=== PATIENT | female | born 1990 | race Hispanic/Latino ===

== ENCOUNTER 2020-01-07 13:15 | Emergency (ER) | payer MEDICAID, OTHER ==
[2020-01-07 15:12] LABS: APPEARANCE,URINE Clear (CLEAR); BILIRUBIN,URINE Negative (NEGATIVE); COLOR,URINE Yellow (YELLOW); GLUCOSE, URINE (UA) Negative (NEGATIVE); KETONES,URINE 40 mg/dL (NEGATIVE); LEUKOCYTE ESTERASE ,URINE Trace (NEGATIVE); NITRATE,URINE Negative (NEGATIVE); OCCULT BLOOD,URINE Negative (NEGATIVE); PROTEIN,URINE Negative (NEGATIVE); UROBILINOGEN,URINE 0.2 mg/dL (0.2-1.0)
[2020-01-07 15:26] LABS: BACTERIA,URINE Few /HPF (None Seen); RBC,URINE None Seen /HPF (0-1)
[2020-01-07] MEDS ORDERED: SODIUM CHLORIDE 0.9% 1000ML 1,000 ML IV ONE (15:49)
[2020-01-07] MEDS ORDERED: CEFTRIAXONE SODIUM 1 GM ONE (15:51)
[2020-01-07] MEDS ORDERED: ONDANSETRON HCL 4 MG/2 ML VIAL ONE (15:51)
[2020-01-07] MEDS ORDERED: ACETAMINOPHEN 325 MG TAB ONE (15:51)
== END 2020-01-07 17:05 | disposition home or self-care (01) ==
LOC: EDH 13:15
DX: O23.41 Unspecified infection of urinary tract in pregnancy, first trimester (principal); O99.611 Diseases of the digestive system complicating pregnancy, first trimester; K29.00 Acute gastritis without bleeding; O26.891 Other specified pregnancy related conditions, first trimester; E86.0 Dehydration; Z87.891 Personal history of nicotine dependence; Z3A.08 8 weeks gestation of pregnancy
CPT/HCPCS: 36415; 81001; 81025; 84702; 96361; 96374; 96375; 99284; J0696; J2405; J7030

== ENCOUNTER 2020-07-22 07:36 | Inpatient (IN) | payer MEDICAID ==
[~2020-07-22] VITALS: Ht 157.5 cm; Wt 100.2 kg
[2020-07-22] MEDS ORDERED: LACTATED RINGERS 1000ML 1,000 ML IV PRN (08:17)
[2020-07-22] MEDS ORDERED: TERBUTALINE SULFATE VIAL 1MG/ML SQ PRN (08:30)
[2020-07-22 08:53] LABS: MEAN CORPUSCULAR HEMOGLOBIN 29.7 pg (27.0-33.0); MEAN CORPUSCULAR HGB CONC 33.6 g/dL (32.0-36.0); MEAN CORPUSCULAR VOLUME 88.2 fL (79-99); RED BLOOD CELL COUNT(AUTO) 3.74 MIL/uL (4.00-5.50); RED CELL DISTRIBUTION WIDTH 13.7 % (11.0-15.5); WHITE BLOOD COUNT (AUTO) 10.8 K/uL (4.8-10.8)
[2020-07-22] MEDS ORDERED: CEFAZOLIN SODIUM 1 GM VIAL IVP PRN (11:15)
[2020-07-22] MEDS ORDERED: OXYTOCIN-LR 20 UNITS/1000 ML 1,000 ML IV SCH (11:15)
[2020-07-22] MEDS ORDERED: LACTATED RINGERS 1000ML 1,000 ML IV SCH (11:15)
[2020-07-22] MEDS ORDERED: OXYTOCIN 10 UNIT/1ML 10ML VIAL ONE (12:04)
[2020-07-22] MEDS ORDERED: FENTANYL CITRATE PF 50 MCG/1 ML 2ML VIAL ONE (12:05)
[2020-07-22] MEDS ORDERED: DURAMORPH PF1 MG/ML 10ML AMP IV ONE (12:05)
[2020-07-22] MEDS ORDERED: ONDANSETRON HCL 4 MG/2 ML VIAL ONE ×2 (12:05→16:16)
[2020-07-22] MEDS ORDERED: PROPOFOL 10 MG/ML 20ML VIAL IV ONE (12:28)
[2020-07-22] MEDS ORDERED: EPHEDRINE SULFATE 50 MG/ML AMPULE ONE (12:47)
[2020-07-22] MEDS ORDERED: MEPERIDINE-PF 75 MG/ML SYG IM PRN (13:30)
[2020-07-22] MEDS ORDERED: SODIUM CHLORIDE 0.9% 10 ML VIAL IVP PRN (13:30)
[2020-07-22] MEDS ORDERED: PROMETHAZINE HCL 25 MG/ML 1ML AMPULE IM PRN (13:30)
[2020-07-22] MEDS ORDERED: OXYTOCIN-LR 20 UNITS/1000 ML 1,000 ML IV PRN (13:30)
[2020-07-22] MEDS ORDERED: KETAMINE 50MG/ML SYRINGE 50 MG/ML DISP.SYRIN IV ONE (13:41)
[2020-07-22 15:00] VITALS: BP 120/63
[2020-07-22] MEDS ORDERED: ONDANSETRON HCL 4 MG/2 ML VIAL IVP PRN (16:30)
[2020-07-22] MEDS ORDERED: DiphenhydrAMINE HCL 50 MG/ML VIAL IVP PRN (16:30)
[2020-07-22] MEDS ORDERED: EPHEDRINE SULFATE 50 MG/ML AMPULE IVP PRN (16:30)
[2020-07-22] MEDS ORDERED: NALOXONE HCL 0.4 MG/1 ML ML IVP PRN ×3 (16:30)
[2020-07-22 19:24] VITALS: BP 113/62
[2020-07-22] MEDS: LACTATED RINGERS 1000ML 1,000 ML IV SCH (20:02)
[2020-07-22 23:23] VITALS: BP 102/51
[2020-07-23 03:24] VITALS: BP 90/58
[2020-07-23] MEDS: LACTATED RINGERS 1000ML 1,000 ML IV SCH (06:07)
--- NOTE | 2020-07-23 06:15 | NUR ---
SAURABH LEON, HELEN CARE DONE. PT. INSTRUCTED TO CALL FOR ASSIST BEFORE GETTING OUT OF BED, VERBALIZED UNDERSTANDING. Addendum: 07/23/20 at 0710 by LETA DOUGLAS RN RN Amended: Links added.
[2020-07-23 06:24] LABS: HEMATOCRIT 29.3 % (36-48); MEAN CORPUSCULAR HEMOGLOBIN 30.2 pg (27.0-33.0); MEAN CORPUSCULAR HGB CONC 33.4 g/dL (32.0-36.0); MEAN CORPUSCULAR VOLUME 90.4 fL (79-99); RED BLOOD CELL COUNT(AUTO) 3.24 MIL/uL (4.00-5.50); WHITE BLOOD COUNT (AUTO) 10.3 K/uL (4.8-10.8)
[2020-07-23] MEDS ORDERED: ACETAMINOPHEN EXTRA STRENGTH 500 MG TABLET PO PRN ×2 (06:30→07:45)
[2020-07-23] MEDS ORDERED: IBUPROFEN 600 MG TABLET PO PRN ×2 (06:30→07:45)
[2020-07-23] MEDS ORDERED: BISACODYL 10 MG SUPP.RECT RC PRN ×2 (06:30→07:45)
[2020-07-23] MEDS ORDERED: ACETAMINOPHEN-CODEINE 300/30MG TAB PO PRN ×2 (06:30→07:45)
[2020-07-23] MEDS ORDERED: SIMETHICONE 80 MG TAB.CHEW PO PRN (06:30)
[2020-07-23] MEDS ORDERED: DIPHENHYDRAMINE HCL 25 MG CAPSULE PO PRN (06:30)
[2020-07-23] MEDS ORDERED: HYDROCODONE/ACETAMINOPHEN 5/325 MG TAB PO PRN ×2 (06:30→07:45)
[2020-07-23] MEDS ORDERED: LANOLIN 30GM OINTMENT TP PRN ×2 (06:30→07:45)
[2020-07-23 07:15] LABS: HEPATITIS Bs ANTIGEN SCREEN P Negative (Negative)
[2020-07-23 07:45] VITALS: BP 98/62
--- NOTE | 2020-07-23 07:50 | NUR ---
DR. JEAN ROUNDED AND INSTRUCTED PATIENT SHE COULD BE DISCHARGED TOMORROW. PATIENT STABLE AND INDICATED BEING OKAY WITH STAYING.
[2020-07-23] MEDS ORDERED: DOCUSATE SODIUM 100 MG CAP PO SCH ×2 (09:00)
[2020-07-23] MEDS: SIMETHICONE 80 MG TAB.CHEW PO PRN ×2 (09:39→16:18)
--- NOTE | 2020-07-23 10:30 | NUR ---
WAS INFORMED BY NURSERY THAT BABY WAS DISCHARGED. PATIENT WAS STILL DUE TO VOID. PATIENT INDICATED BEING OKAY WITH DISCHARGE THIS AFTERNOON. PATIENT INFORMED THAT IF SHE HAD NO PROBLEM VOIDING AND PASSING GAS, DR. JEAN WOULD BE CALLED FOR DISCHARGE ORDER AND AGREED.
[2020-07-23 11:37] VITALS: BP 97/59
--- NOTE | 2020-07-23 16:45 | NUR ---
PATIENT INDICATED VOIDING WITHOUT ANY PROBLEMS AND TOLERATING ACTIVITY WELL. WAS GIVEN MOTRIN PER PATIENT REQUEST AND INDICATED WANTING ONLY MOTRIN FOR PAIN AND NO NARCOTICS.
--- NOTE | 2020-07-23 17:00 | NUR ---
DR. JEAN CALLED AND INDICATED NOT HAVING LEFT SCRIPT FOR TYLENOL #3 AND WAS MADE AWARE THAT PATIENT HAD INDICATED NOT WANTING ANY NARCOTICS AND ONLY REQUESTING MOTRIN. ORDER WAS GIVEN FOR DISCHARGED AT THIS TIME.
--- NOTE | 2020-07-23 18:45 | NUR ---
DISCHARGE INSTRUCTIONS GIVEN AND VERBALIZED UNDERSTANDING INSTRUCTIONS. PATIENT STATES BEING OKAY AFTER GETTING MOTRIN.
--- NOTE | 2020-07-23 19:00 | NUR ---
PATIENT WAS TAKEN VIA W/C CARRYING BABY IN ARMS AND WERE DISCHARGED TO HER SIGNIFICANT OTHER. PATIENT STABLE.
== END 2020-07-23 19:00 | disposition home or self-care (01) | DRG 540 ==
LOC: EDH 07:36 → OBSVTOIN 07:37 → LDH 07:37 → WSH 15:00
PROVIDERS: ADMIT Specialist; ATTEND Specialist
PROC: 10D00Z1 Extraction of Products of Conception, Low, Open Approach (ICD-10-PCS; principal; 2020-07-23)
DX: O34.211 Maternal care for low transverse scar from previous cesarean delivery (principal); O60.14X0 Preterm labor third trimester with preterm delivery third trimester, not applicable or unspecified; Z3A.36 36 weeks gestation of pregnancy; Z37.0 Single live birth; O99.62 Diseases of the digestive system complicating childbirth; K21.9 Gastro-esophageal reflux disease without esophagitis
CPT/HCPCS: 36415; 59510; 85027; 86592; 86850; 86900; 86901; 87340; A4344; G0378; J0690; J2274; J2405; J2590; J2704; J3010; J3105; J3490; J7120